=== PATIENT | female | born 1955 | race African-American/Black ===

== ENCOUNTER 2020-01-06 12:51 | Inpatient (IN) | payer MEDICARE, MEDICAID ==
--- NOTE | 2020-01-06 13:53 | ER Document Report ---
ED Medical Screen (RME) - General Chief Complaint: Abscess Stated Complaint: POSSIBLE ABSCESS Time Seen by Provider: 01/06/20 13:48 Mode of Arrival: Ambulatory Information source: Patient Notes: 64-year-old female ED for complaint of large abscess to the buttocks. She states it started a week ago Thursday. She states it started out very small but now it is very large. She states at home it started draining some and now it is draining more and it is very painful. She states it is very hard for her to walk or sit. 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 She states that she did not have surgery on this in the past. I have greeted and performed a rapid initial assessment of this patient. A comprehensive ED assessment and evaluation of the patient, analysis of test results and completion of medical decision making process will be conducted by an additional ED providers. - HPI Quality of pain: Sharp Severity: Severe Pain Level: 5 Associated Symptoms: Other - Large rectal/buttock fistula Exacerbated by: Sitting, Walking Relieved by: Denies Similar symptoms previously: Yes Recently seen / treated by doctor: No - Related Data Smoking: Cigarettes - half pack a day Frequency of alcohol use: None Drug Abuse: None Past Medical History - General Information source: Patient EENT Medical History: Reports: None Neurological Medical History: Reports: None Endocrine Medical History: Reports: None Renal/ Medical History: Reports: None Malignancy Medical History: Reports: None GI Medical History: Reports: None, Other - No fistula Musculoskeltal Medical History: Reports None Skin Medical History: Reports Hx Cellulitis, Reports Other - [place] spotted fever Psychiatric Medical History: Reports: None Traumatic Medical History: Reports: None Infectious Medical History: Reports: None - Immunizations Immunizations up to date: Yes Physical Exam - Vital signs Vitals: Temp Pulse Resp BP Pulse Ox 97.4 F 124 H 18 140/81 H 98 01/06/20 12:58 01/06/20 12:58 01/06/20 12:58 01/06/20 12:58 01/06/20 12:58 Course - Vital Signs Vital signs: Temp Pulse Resp BP Pulse Ox 97.4 F 124 H 18 140/81 H 98 01/06/20 12:58 01/06/20 12:58 01/06/20 12:58 01/06/20 12:58 01/06/20 12:58
[2020-01-06] MEDS ORDERED: NORMAL SALINE 1000 ML 1,000 ML IV ONE (14:46)
[2020-01-06] MEDS ORDERED: ONDANSETRON HCL INJ/PF 4 MG/2 ML SDV IV ONE (14:47)
--- NOTE | 2020-01-06 14:50 | ER Document Report ---
ED Skin Rash/Insect Bite/Abscs - General Chief Complaint: Abscess Stated Complaint: POSSIBLE ABSCESS Time Seen by Provider: 01/06/20 13:48 Mode of Arrival: Ambulatory Information source: Patient Notes: Patient presents complaining of tenderness and swelling to the right buttock for the past week. Patient states that last night she started to have drainage from an abscess to this area. Patient denies any fever. Patient reports nausea. Patient states she had a previous anal fistula but states that it did not require any surgery. Patient denies any significant medical history other does not see a doctor regularly. TRAVEL OUTSIDE OF THE [place] IN LAST 30 DAYS: No - HPI Patient complains to provider of: Tender/swollen area Onset: Last week Onset/Duration: Worse Quality of pain: Sharp Pain Level: 5 Skin Character: Abscess, Drainage, Tenderness, Warm Skin Temperature: Warm Quality of rash: Painful Exacerbated by: Movement Relieved by: Denies Similar symptoms previously: Yes Recently seen / treated by doctor: No - Related Data Allergies/Adverse Reactions: No Known Allergies Allergy (Unverified 01/06/20 14:32) Past Medical History - General Information source: Patient - Social History Smoking Status: Current Every Day Smoker Frequency of alcohol use: None Drug Abuse: None Occupation: None Family History: Reviewed & Not Pertinent EENT Medical History: Reports: None Neurological Medical History: Reports: None Endocrine Medical History: Reports: None Renal/ Medical History: Reports: None Malignancy Medical History: Reports: None GI Medical History: Reports: Other - Anal fistula Musculoskeletal Medical History: Reports None Skin Medical History: Reports Hx Cellulitis, Reports Other - [place] spotted fever Psychiatric Medical History: Reports: None Traumatic Medical History: Reports: None Infectious Medical History: Reports: None Surgical Hx: Negative - Immunizations Immunizations up to date: Yes Review of Systems - Review of Systems Constitutional: No symptoms reported. denies: Fever EENT: No symptoms reported Cardiovascular: No symptoms reported. denies: Chest pain Respiratory: No symptoms reported. denies: Cough Gastrointestinal: Nausea. denies: Vomiting Genitourinary: No symptoms reported Female Genitourinary: No symptoms reported Musculoskeletal: No symptoms reported Skin: Other - Abscess to right buttock Hematologic/Lymphatic: No symptoms reported Neurological/Psychological: No symptoms reported Physical Exam - Vital signs Vitals: Temp Pulse Resp BP Pulse Ox 97.4 F 124 H 18 140/81 H 98 01/06/20 12:58 01/06/20 12:58 01/06/20 12:58 01/06/20 12:58 01/06/20 12:58 - General General appearance: Alert, Anxious In distress: None - HEENT Head: Normocephalic, Atraumatic Eyes: Normal Conjunctiva: Normal Nasal: Normal Mouth/Lips: Normal Mucous membranes: Normal Neck: Normal, Supple - Respiratory Respiratory status: No respiratory distress Chest status: Nontender Breath sounds: Normal Chest palpation: Normal - Abdominal Inspection: Morbidly Obese Distension: No distension Tenderness: Nontender - Rectal Tenderness: Yes Hemorrhoids: None Notes: Carleen RN as standby - Back Back: Normal, Nontender - Extremities General upper extremity: Normal inspection, Normal strength General lower extremity: Normal inspection, Normal strength - Neurological Neuro grossly intact: Yes Cognition: Normal Samantha Coma Scale Eye Opening: Spontaneous Samantha Coma Scale Verbal: Oriented Samantha Coma Scale Motor: Obeys Commands Samantha Coma Scale Total: 15 - Psychological Associated symptoms: Anxious - Skin Skin Temperature: Warm Skin Moisture: Dry Skin irregularity: Abscess - Spontaneously draining abscess to left buttock Location of irregularity: Other Irregularity with: Swelling, Tenderness, Warmth, Inflammation Course - Re-evaluation Re-evalutation: 01/06/20 15:[address] Winn regarding patient presentation and exam findings. He advises starting with IV Zosyn and CT imaging of the area for further evaluation at this time. He advises IV contrast only at this time. 01/06/20 17:23 Patient reports pain is improved after medication. Radiologist called stating that patient had gas in the large abscess worry some for necrotizing infection. She is uncertain if there is any extensive rectal involvement patient was not able to receive IV contrast due to her renal function. 01/06/20 17:[address] Salazar who agrees to come and evaluate patient. 01/06/20 17:45 Dr. Salazar states that patient did not want to have surgery or be admitted. 01/06/20 17:54 After speaking with patient, patient states that due to the amount of pain she was having during examination she states that she was not listening to anything that the surgeon was saying. Patient states that she is agreeable with staying for admission and is agreeable to have a drainage procedure. 01/06/20 17:[address] Salazar who advises this provider is capable of draining patient's abscess and he advises after incision and drainage packing the wound. He states that patient told him to leave the room and that patient did not want him touching her, he states that he has signed off the case at this time. 01/06/20 18:15 Dr. Winn to bedside to discuss plan of care with patient. Patient is agreeable with this provider performing an incision and drainage procedure at this time as surgeon has signed off the case, patient states that she is a greeable with admission at this time. 01/06/20 19:10 Dr. Winn to bedside to assist with incision and drainage procedure. 01/06/20 19:23 Dr. Winn states that he spoke with surgeon Dr. Salazar who advises packing wound at this time and having hospitalist to admit patient. He advises that if she requires surgery it could be done tomorrow. 01/06/20 19:[address] Cabral who does agree to admit patient. - Vital Signs Vital signs: Temp Pulse Resp BP Pulse Ox 97.5 F 90 20 103/58 L 93 01/06/20 22:28 01/06/20 22:28 01/06/20 22:28 01/06/20 22:28 01/06/20 22:28 - Laboratory Result Diagrams: 01/06/20 14:20 01/06/20 14:20 Laboratory results interpreted by me: 01/06/20 01/06/20 01/06/20 14:20 14:20 14:20 WBC 17.4 H RBC 5.29 H MCH 26.7 L MCHC 31.9 L RDW 15.9 H Lymph % (Auto) 5.2 L Absolute Neuts (auto) 15.1 H Seg Neutrophils % 86.3 H Creatinine 1.39 H Est GFR ( Amer) 46 L Est GFR (MDRD) Non-Af 38 L Glucose 281 H POC Glucose Hemoglobin A1c % 8.3 H Alkaline Phosphatase 178 H Albumin 3.2 L 01/06/20 19:51 WBC RBC MCH MCHC RDW Lymph % (Auto) Absolute Neuts (auto) Seg Neutrophils % Creatinine Est GFR ( Amer) Est GFR (MDRD) Non-Af Glucose POC Glucose 243 H Hemoglobin A1c % Alkaline Phosphatase Albumin Labs- All tests 24 hr 01/06/20 01/06/20 01/06/20 14:20 14:20 14:20 WBC 17.4 H RBC 5.29 H Hgb 14.1 Hct 44.2 MCV 84 MCH 26.7 L MCHC 31.9 L RDW 15.9 H Plt Count 399 Lymph % (Auto) 5.2 L [place] % (Auto) 6.9 Eos % (Auto) 1.2 Baso % (Auto) 0.4 Absolute Neuts (auto) 15.1 H Absolute Lymphs (auto) 0.9 Absolute Monos (auto) 1.2 Absolute Eos (auto) 0.2 Absolute Basos (auto) 0.1 Seg Neutrophils % 86.3 H Sodium 140.9 Potassium 3.8 Chloride 102 Carbon Dioxide 28 Anion Gap 11 BUN 16 Creatinine 1.39 H Est GFR ( Amer) 46 L Est GFR (MDRD) Non-Af 38 L Glucose 281 H Hemoglobin A1c % 8.3 H Calcium 9.3 Total Bilirubin 1.0 Direct Bilirubin 0.3 Neonat Total Bilirubin Not Reportable Neonat Direct Bilirubin Not Reportable Neonat Indirect Bili Not Reportable AST 16 ALT 14 Alkaline Phosphatase 178 H Total Protein 6.8 Albumin 3.2 L - Diagnostic Test Radiology reviewed: Reports reviewed Procedures - Incision and Drainage Right Buttock Type: Simple Anesthetic type: 1% Lidocaine Blade size: 11 I&D procedure: Betadine prep applied Incision Method: Incision made by scalpel Notes: 01/06/20 19:24 Elliptical incision made to right buttock, large amount of bloody, foul-smelling drainage with some necrotic tissue drained. Wound was probed with rounded forceps. Half-inch packing gauze was placed in wound Discharge - Discharge Clinical Impression: Left buttock abscess Diabetes Qualifiers: Diabetes mellitus type: type 2 Diabetes mellitus skilled nursing insulin use: without termite exterminator use Diabetes mellitus complication status: with hyperglycemia Qualified Code(s): E11.65 - Type 2 diabetes mellitus with hyperglycemia Condition: Fair Disposition: ADMITTED INPATIENT Admitting Provider: Misha (Hospitalist) Unit Admitted: Medical Floor
[2020-01-06] MEDS ORDERED: MORPHINE SULFATE 10 MG/ML INJ IV ONE ×2 (14:55→18:28)
[2020-01-06 14:59] LABS: ABSOLUTE BASOPHILS # (AUTO) 0.1 10^3/uL (0.0-0.2); ABSOLUTE EOSINOPHILS # (AUTO) 0.2 10^3/uL (0.0-0.6); ABSOLUTE LYMPHOCYTES (AUTO) 0.9 10^3/uL (0.5-4.7); ABSOLUTE MONOCYTES (AUTO) 1.2 10^3/uL (0.1-1.4); ABSOLUTE NEUT (AUTO) 15.1 10^3/uL (1.7-8.2); BASOPHILS % (AUTO) 0.4 % (0-2); EOSINOPHILS % (AUTO) 1.2 % (0-6); HEMATOCRIT 44.2 % (36.0-47.0); HEMOGLOBIN 14.1 g/dL (12.0-15.5); LYMPHOCYTES % (AUTO) 5.2 % (13-45); MEAN CORPUSCULAR HEMOGLOBIN 26.7 pg (27.0-33.4); MEAN CORPUSCULAR HGB CONC 31.9 g/dL (32.0-36.0); MEAN CORPUSCULAR VOLUME 84 fl (80-97); MONOCYTES % (AUTO) 6.9 % (3-13); PLATELET COUNT 399 10^3/uL (150-450); RED BLOOD COUNT 5.29 10^6/uL (3.72-5.28); RED CELL DISTRIBUTION WIDTH 15.9 % (11.5-14.0); SEGMENTED NEUTROPHILS % (AUTO) 86.3 % (42-78); TOTAL CELLS COUNTED % (AUTO) 100 %; WHITE BLOOD COUNT 17.4 10^3/uL (4.0-10.5)
[2020-01-06 15:22] LABS: ALBUMIN 3.2 g/dL (3.5-5.0); ALKALINE PHOSPHATASE 178 U/L (38-126); ANION GAP 11 (5-19); ASPARTATE AMINO TRANSFERASE 16 U/L (14-36); BILIRUBIN,DIRECT 0.3 mg/dL (0.0-0.4); BLOOD UREA NITROGEN 16 mg/dL (7-20); CALCIUM 9.3 mg/dL (8.4-10.2); CARBON DIOXIDE 28 mmol/L (22-30); CHLORIDE 102 mmol/L (98-107); GLUCOSE 281 mg/dL (75-110); POTASSIUM 3.8 mmol/L (3.6-5.0); TOTAL PROTEIN 6.8 g/dL (6.3-8.2)
[2020-01-06] MEDS ORDERED: PIPERACILLIN/TAZOBACTAM 3.375 GM VIAL IV ONE (15:24)
--- NOTE | 2020-01-06 17:26 | RADIOLOGY REPORT (SQ) ---
EXAM DESCRIPTION: CT PELVIS WITH IMAGES COMPLETED DATE/TIME: 01/06/2020 3:49 pm REASON FOR STUDY: eval abscess to r buttock, hx fistula. COMPARISON: None. TECHNIQUE: CT scan of the pelvis performed without intravenous or oral contrast. Images reviewed wi th soft tissue and bone windows. Reconstructed coronal and sagittal MPR images reviewed. All images stored on PACS. All CT scanners at this facility use dose modulation, iterative reconstruction, and/or weight based d osing when appropriate to reduce radiation dose to as low as reasonably achievable (ALARA). [facility]: Dose Right [facility]: CareDose [facility]: Dose Right [facility]: Teradose 4D [facility]: [employer] RADIATION DOSE: CT Rad equipment meets quality standard of care and radiation dose reduction techniq ues were employed. CTDIvol: 14.4 mGy. DLP: 714 mGy-cm. mGy. LIMITATIONS: Lack of IV contrast limits evaluation of the soft tissues and bowel. FINDINGS: PELVIC BONES: No acute fracture. No worrisome bone lesions. No CT evidence of osteomyelit is. VISUALIZED SPINE: No acute findings. HIP(S): No acute fracture or dislocation. No worrisome bone lesions. SOFT TISSUES: There is a subcutaneous abscess containing foci of gas in the medial left gluteal subcu taneous fat measuring 9.2 x 4.6 cm. No significant fluid component. Skin thickening at the medial l eft gluteal cleft. Phlegmon/soft tissue attenuation extends to the left external anal canal, without definitive involvement of the internal anal canal, poorly evaluated without IV contrast and on CT. No foreign body. OTHER: No other significant finding. IMPRESSION: 1. Left gluteal subcutaneous abscess containing gas, suspicious for necrotizing infection. No involv ement of the perineum. There may be involvement of the left external anal sphincter. No definite in volvement of the internal anal sphincter or extension to the intraperitoneal space. COMMENT: Findings discussed with Angelique Hackett on 01/06/2020 at 1715 hours. Eastern time TECHNICAL DOCUMENTATION: JOB ID: [id number] Quality ID # [id number]: Final reports with documentation of one or more dose reduction techniques (e.g., Au tomated exposure control, adjustment of the mA and/or kV according to patient size, use of iterative reconstruction technique) 2010 [employer]- All Rights Reserved Reading location - IP/workstation name: [id number]
--- NOTE | 2020-01-06 17:53 | PDOC CONSULTATION ---
Consultation Consult Date: 01/06/20 Provider Consulted: SURGICAL SURGICALIST MD Consult reason:: Buttock abscess History of Present Illness History of Present Illness: ALEKSANDAR SCHMIDT is a 64 year old female seen in consultation at the request of the emergency room physician. This is a patient who "does not go to the doctor". She denies any medical problems, although has a blood sugar of greater than 280 today. She reports a 1 week history of swelling and pain of the left buttock. She presents to the emergency department for treatment. She has had similar symptoms like this in the past. Other doctors "give her antibiotics and pain medicine, and send her home". The patient denies chest pain, shortness of breath, nausea, vomiting, headache, dizziness, orthostasis, blurry vision. Past Medical History EENT Medical History: Reports: None Neurological Medical History: Reports: None Endocrine Medical History: Reports: None Renal/ Medical History: Reports: None Malignancy Medical History: Reports: None GI Medical History: Reports: None, Other - Anal fistula Musculoskeltal Medical History: Reports: None Skin Medical History: Reports: Other - [place] spotted fever Psychiatric Medical History: Reports: None Traumatic Medical History: Reports: None Infectious Medical History: Reports: None Social History Smoking Status: Current Every Day Smoker Electronic Cigarette use?: No Family History Family History: Reviewed & Not Pertinent Parental Family History Reviewed: Yes Children Family History Reviewed: Yes Sibling(s) Family History Reviewed.: Yes Medication/Allergy Allergies/Adverse Reactions: No Known Allergies Allergy (Unverified 01/06/20 14:32) Review of Systems Constitutional: ABSENT: anorexia, chills, fatigue Eyes: ABSENT: visual disturbances Ears: ABSENT: hearing changes Nose, Mouth, and Throat: ABSENT: sore throat Cardiovascular: ABSENT: chest pain Respiratory: ABSENT: cough Gastrointestinal: ABSENT: abdominal pain Genitourinary: ABSENT: dysuria Musculoskeletal: ABSENT: back pain Integumentary: PRESENT: other - Painful, swollen buttock lesion. ABSENT: rash Neurological: ABSENT: confusion, convulsions, dizziness Psychiatric: ABSENT: anxiety, depression Endocrine: ABSENT: cold intolerance, heat intolerance Hematologic/Lymphatic: ABSENT: easy bleeding, easy bruising Physical Exam Vital Signs: Temp Pulse Resp BP Pulse Ox 98.2 F 98 16 121/63 96 01/06/20 16:47 01/06/20 14:55 01/06/20 14:55 01/06/20 14:55 01/06/20 14:55 Intake & Output 01/05/20 01/06/20 01/07/20 06:59 06:59 06:59 Intake Total 100 Balance 100 Weight 52.3 kg General appearance: PRESENT: morbidly obese Head exam: PRESENT: atraumatic, normocephalic Eye exam: PRESENT: EOMI, PERRLA. ABSENT: scleral icterus Mouth exam: PRESENT: moist, neck supple Neck exam: ABSENT: meningismus, tenderness, thyromegaly, tracheal deviation Respiratory exam: PRESENT: unlabored. ABSENT: tachypnea, wheezes Cardiovascular exam: ABSENT: tachycardia Vascular exam: PRESENT: normal capillary refill GI/Abdominal exam: PRESENT: soft. ABSENT: tenderness Rectal exam: PRESENT: other - Multiple anal skin tags. No perirectal involvement. ABSENT: hemorrhoids Extremities exam: ABSENT: clubbing Musculoskeletal exam: ABSENT: deformity Neurological exam: PRESENT: alert, awake, oriented to person, oriented to place, oriented to time, oriented to situation Psychiatric exam: PRESENT: anxious. ABSENT: agitated Skin exam: PRESENT: other - 3 cm buttock abscess, actively draining purulent material. There is no perirectal extension. Results Laboratory Results: 01/06/20 14:20 01/06/20 14:20 01/06/20 01/06/20 14:20 14:20 WBC 17.4 H RBC 5.29 H Hgb 14.1 Hct 44.2 MCV 84 MCH 26.7 L MCHC 31.9 L RDW 15.9 H Plt Count 399 Seg Neutrophils % 86.3 H Sodium 140.9 Potassium 3.8 Chloride 102 Carbon Dioxide 28 Anion Gap 11 BUN 16 Creatinine 1.39 H Est GFR ( Amer) 46 L Glucose 281 H Calcium 9.3 Total Bilirubin 1.0 AST 16 Alkaline Phosphatase 178 H Total Protein 6.8 Albumin 3.2 L Impressions: Pelvis CT 01/06/20 15:24 IMPRESSION: 1. Left gluteal subcutaneous abscess containing gas, suspicious for necrotizing infection. No involvement of the perineum. There may be involvement of the left external anal sphincter. No definite involvement of the internal anal sphincter or extension to the intraperitoneal space. Assessment & Plan - Diagnosis (1) Left buttock abscess Is this a current diagnosis for this admission?: Yes - Plan Summary Plan Summary: This is a 64-year-old female with a left buttock abscess. I have recommended incision and drainage, however the patient has refused. She has requested "antibiotics, pain medicine, and discharged home". She reports that this has "worked before". I have discussed with her that there is a high likelihood of failure without adequate drainage of the abscess. She is still uninterested in bedside surgical intervention. I will sign off at this time. Disposition per ER physician. Also please note that the patient has a hemoglobin A1c of 8.3 , and a blood glucose of 281. The patient is in obvious diabetic, but has never been diagnosed or treated as such. It would be prudent, in the face of an infection, to treat her diabetes. I will leave this to the emergency room physician.
[2020-01-06] MEDS ORDERED: LIDOCAINE 1% INJ-PF (10 MG/ML) 30 ML SDV INJ ONE (17:58)
--- NOTE | 2020-01-06 19:56 | ER Document Report ---
Doctor's Note Notes: 01/06/20 19:52 This is a 64-year-old female I was asked see along with nurse practitioner. Patient is a poorly controlled diabetic who has a large left gluteal abscess. I examined the patient at the bedside and reviewed the documentation per nurse practitioner. linux consultant evaluated the patient but signed off the case as the patient refused I&D initially. Patient subsequently consented to an I&D in the emergency department by the nurse practitioner. I recommend admission to medicine at this time with IV antibiotics and control patient's blood glucose level. Follow-up surgical consultation will be obtained.
[2020-01-06] MEDS ORDERED: PROMETHAZINE HCL INJ 25 MG/1 ML VIAL IV PRN (20:11)
[2020-01-06] MEDS ORDERED: MAG HYDROX/AL HYDROX/SIMETH SUSP 30 ML UDCUP PO PRN (20:11)
[2020-01-06] MEDS ORDERED: MAGNESIUM HYDROXIDE SUSP 30 ML UDCUP PO PRN (20:11)
[2020-01-06] MEDS ORDERED: DEXTROSE 40% GEL 15 GM TUBE PO PRN ×2 (20:15)
[2020-01-06] MEDS ORDERED: LORAZEPAM INJ 2 MG/1 ML VIAL IV PRN (20:15)
[2020-01-06] MEDS ORDERED: NICOTINE 21 MG/24 HR PATCH.TD24 TD PRN (20:15)
[2020-01-06] MEDS ORDERED: GLUCAGON,HUMAN RECOMB 1 MG INJ IM PRN (20:15)
[2020-01-06] MEDS ORDERED: DEXTROSE 50%-WATER 25 GM/50 ML DISP.SYRIN IV PRN ×2 (20:15)
[2020-01-06] MEDS ORDERED: GUAIFENESIN SYRP 200 MG/10 ML UDC PO PRN (20:15)
[2020-01-06] MEDS: LINEZOLID 600 MG/300 ML RTUPB IV SCH (22:37)
[2020-01-06] MEDS: INSULIN REG, HUMAN 100 UNIT/ML 3 ML VIAL (PYX) SUBCUT PRN (23:33)
[2020-01-06] MEDS: HEPARIN SOD (PORCINE) 5,000 UNIT/ML 1 ML VIAL SUBCUT SCH (23:34)
[2020-01-07] MEDS ORDERED: PIPERACILLIN/TAZOBACTAM 3.375 GM VIAL IV SCH
[2020-01-07] MEDS: PIPERACILLIN SODIUM/TAZOBACTAM 2.25 GM in NORMAL SALINE 50 ML IV SCH ×5 (01:02→23:25)
[2020-01-07] MEDS: MORPHINE SULFATE 10 MG/ML INJ IV PRN ×4 (03:47→18:21)
--- NOTE | 2020-01-07 04:42 | PDOC H&P ---
History of Present Illness Admission Date/PCP: 01/06/2020 19:44 No local PCP Patient complains of: Left buttock pain History of Present Illness: ALEKSANDAR SCHMIDT is a 64 year old female who presents the emergency room with a 1 week history of left buttock pain. She admits gradually worsening pain accompanied by swelling in her left buttock over the course of the last week becoming severe today. Her buttock pain has also been accompanied by drainage of "pus" over the last 24 hours. Her buttock pain has been associated with developing nausea since the pain has been severe today. She denies other associated or accompanying signs and symptoms. The pain is sharp and stabbing without radiation, worsened by movement and sitting or otherwise putting pressure on the left buttock. She admits numerous prior similar episodes of skin and perianal abscesses which have been treated with oral antibiotics and have not required surgery. She has not identified any additional aggravating or ameliorating factors for her buttock pain. In the emergency room she was found to have a leukocytosis of 17,400 and a glucose of 281 with hemoglobin A1c of 8.3. Patient was not previously known to be diabetic. A CT scan of the area revealed an abscess with a small amount of gas formation consistent with local necrosis. She was seen by Dr. Salazar in consultation ordered by the emergency room provider. He recommended admission with surgical incision and drainage tomorrow. Patient was subsequently admitted to the hospital service for further evaluation and treatment with consultation to Dr. Salazar for further surgical care. Past Medical History Cardiac Medical History: Denies: Atrial Fibrillation, Coronary Artery Disease, DVT, Hyperlipidema, Hypertension, Pulmonary Embolism Pulmonary Medical History: Denies: Asthma, Chronic Obstructive Pulmonary Disease (COPD) EENT Medical History: Denies: Cataracts, Ears - Hearing aids Neurological Medical History: Denies: Hemorrhagic CVA, Ischemic CVA, Seizures Endocrine Medical History: Denies: Diabetes Mellitus Type 1, Hyperthyroidism, Hypothyroidism Renal/ Medical History: Denies: Chronic Kidney Disease, Nephrolithiasis Malignancy Medical History: Reports: None GI Medical History: Reports: Other - Anal fistula Denies: Cirrhosis, Crohn's Disease, Gastroesophageal Reflux Disease, Hepatitis, Peptic Ulcer Disease, Ulcerative Colitis Musculoskeltal Medical History: Denies: Arthritis, Fibromyalgia Skin Medical History: Denies: Eczema, Psoriasis Psychiatric Medical History: Reports: Tobacco Dependency Denies: Alcohol Dependency, Substance Abuse Traumatic Medical History: Reports: None Hematology: Denies: Anemia, Bleeding Tendencies Infectious Medical History: Reports: Other Infectious History Note: Mayfair spotted fever Past Surgical History Past Surgical History: Reports: None Social History Information Source: Patient Lives with: Alone Smoking Status: Current Every Day Smoker Electronic Cigarette use?: No Frequency of Alcohol Use: None Hx Recreational Drug Use: No Drugs: None Hx Prescription Drug Abuse: No - Advance Directive Resuscitation Status: Full Code Surrogate healthcare decision maker:: Leticia Patel Family History Family History: denies: CAD, DM, Hypertension, Malignancy Parental Family History Reviewed: Yes Children Family History Reviewed: No Sibling(s) Family History Reviewed.: Yes Medication/Allergy Home Medications: Ibuprofen [Motrin Ib] 200 mg PO DAILYP PRN 01/06/20 Allergies/Adverse Reactions: No Known Allergies Allergy (Unverified 01/06/20 14:32) Review of Systems Constitutional: ABSENT: chills, fever(s) Eyes: ABSENT: visual disturbances, other - Eye pain Ears: ABSENT: hearing changes, other - Ear pain Nose, Mouth, and Throat: ABSENT: headache(s), sore throat Cardiovascular: ABSENT: chest pain, palpitations Respiratory: ABSENT: cough, dyspnea Gastrointestinal: PRESENT: as per HPI, nausea. ABSENT: abdominal pain, constipation, diarrhea, vomiting Genitourinary: ABSENT: dysuria, hematuria Musculoskeletal: ABSENT: back pain, joint swelling Integumentary: PRESENT: as per HPI, other - Painful swelling of the left buttock with purulent drainage. ABSENT: pruritus, rash Neurological: ABSENT: confusion, convulsions, focal weakness, memory loss, syncope Psychiatric: ABSENT: anxiety, depression Endocrine: ABSENT: cold intolerance, heat intolerance Hematologic/Lymphatic: ABSENT: easy bleeding, easy bruising Allergic/Immunologic: ABSENT: seasonal rhinorrhea Physical Exam Vital Signs: Temp Pulse Resp BP Pulse Ox 98.2 F 98 16 121/63 96 01/06/20 16:47 01/06/20 14:55 01/06/20 14:55 01/06/20 14:55 01/06/20 14:55 Intake & Output 01/04/20 01/05/20 01/06/20 23:59 23:59 23:59 Intake Total 100 Balance 100 Weight 52.3 kg General appearance: PRESENT: cooperative, mild distress - Secondary to left buttock pain, morbidly obese Head exam: PRESENT: atraumatic, normocephalic Eye exam: PRESENT: conjunctiva pink. ABSENT: conjunctival injection, scleral icterus Ear exam: PRESENT: normal external ear exam. ABSENT: bleeding, drainage Mouth exam: PRESENT: dry mucosa, neck supple Neck exam: ABSENT: thyromegaly, tracheal deviation Respiratory exam: PRESENT: clear to auscultation patti, symmetrical, unlabored Cardiovascular exam: PRESENT: RRR. ABSENT: clicks, gallop, rubs Pulses: PRESENT: normal radial pulses, normal dorsalis pedis pul Vascular exam: PRESENT: normal capillary refill. ABSENT: pallor GI/Abdominal exam: PRESENT: normal bowel sounds, soft. ABSENT: tenderness Rectal exam: PRESENT: deferred Extremities exam: ABSENT: joint swelling, pedal edema Musculoskeletal exam: ABSENT: deformity, dislocation Neurological exam: PRESENT: alert, oriented to person, oriented to place, [place] to time, oriented to situation, CN II-XII grossly intact. ABSENT: motor sensory deficit Psychiatric exam: PRESENT: appropriate affect, normal mood Skin exam: PRESENT: dry, warm, other - Erythema and edema with local tenderness of the left buttock and a central area of induration that has been incised and drained with packing in place.. ABSENT: jaundice, rash, urticaria Results Laboratory Results: 01/06/20 14:20 01/06/20 14:20 01/06/20 01/06/20 14:20 14:20 WBC 17.4 H RBC 5.29 H Hgb 14.1 Hct 44.2 MCV 84 MCH 26.7 L MCHC 31.9 L RDW 15.9 H Plt Count 399 Seg Neutrophils % 86.3 H Sodium 140.9 Potassium 3.8 Chloride 102 Carbon Dioxide 28 Anion Gap 11 BUN 16 Creatinine 1.39 H Est GFR ( Amer) 46 L Glucose 281 H Calcium 9.3 Total Bilirubin 1.0 AST 16 Alkaline Phosphatase 178 H Total Protein 6.8 Albumin 3.2 L Impressions: Pelvis CT 01/06/20 15:24 IMPRESSION: 1. Left gluteal subcutaneous abscess containing gas, suspicious for necrotizing infection. No involvement of the perineum. There may be involvement of the left external anal sphincter. No definite involvement of the internal anal sphincter or extension to the intraperitoneal space. Assessment and Plan - Diagnosis (1) Left buttock abscess Is this a current diagnosis for this admission?: Yes (2) Left buttock pain Is this a current diagnosis for this admission?: Yes (3) Nausea Is this a current diagnosis for this admission?: Yes (4) Diabetes mellitus type 2 in obese Is this a current diagnosis for this admission?: Yes (5) Tobacco use disorder, continuous Is this a current diagnosis for this admission?: Yes (6) Morbid obesity Is this a current diagnosis for this admission?: Yes - Plan Summary Summary: Patient will be admitted to the medical floor she will receive routine supportive and symptomatic cares. She will be treated with IV Zosyn and IV Zyvox initially. Surgical consultation with Dr. Salazar has been obtained. She will receive morphine sulfate 2 to 4 mg IV every 2 hours as needed for pain. She will receive Ativan 1 mg IV every 4 hours as needed for anxiety or restlessness. Before meals and at bedtime Accu-Cheks will be performed with sliding scale insulin for hyperglycemia and a hypoglycemic protocol in place. Smoking cessation is advised and counseled briefly at the bedside. A nicotine replacement patch is available for the patient's use, if desired. Additional laboratory and/or radiographic evaluations will be obtained as needed. Patient will be on a diabetic diet. A registered dietitian consultation will be obtained for diabetic education. - Time Time Spent with patient: 15-24 minutes Smoking Cessation Education: 3 to 10 minutes Medications reviewed and adjusted accordingly: Yes Anticipated Discharge Disposition: Home with Home Health Anticipated Discharge Timeframe: within 72 hours - Inpatient Certification Based on my medical assessment, after consideration of the patient's comorbidities, presenting symptoms, or acuity I expect that the services needed warrant INPATIENT care.: Yes I certify that my determination is in accordance with my understanding of Medicare's requirements for reasonable and necessary INPATIENT services [42 CFR 412.3e].: Yes Medical Necessity: Need Close Monitoring Due to Risk of Patient Decompensation, Need for Pain Control, Need for IV Antibiotics, Need for Surgery, Risk of Complication if Not Cared For in Hospital
[2020-01-07] MEDS: HEPARIN SOD (PORCINE) 5,000 UNIT/ML 1 ML VIAL SUBCUT SCH ×3 (05:04→21:03)
[2020-01-07] MEDS: PANTOPRAZOLE SODIUM 40 MG TABLET.DR PO SCH (05:04)
[2020-01-07 06:21] LABS: HEMATOCRIT 42.1 % (36.0-47.0); HEMOGLOBIN 13.3 g/dL (12.0-15.5); MEAN CORPUSCULAR HEMOGLOBIN 26.6 pg (27.0-33.4); MEAN CORPUSCULAR HGB CONC 31.5 g/dL (32.0-36.0); MEAN CORPUSCULAR VOLUME 85 fl (80-97); PLATELET COUNT 404 10^3/uL (150-450); RED BLOOD COUNT 4.98 10^6/uL (3.72-5.28); RED CELL DISTRIBUTION WIDTH 15.7 % (11.5-14.0); WHITE BLOOD COUNT 20.7 10^3/uL (4.0-10.5)
[2020-01-07 06:24] LABS: INTERNATIONAL RATION (INR) 1.07; PARTIAL THROMBOPLASTIN TIME 31.5 SEC (23.5-35.8); PROTHROMBIN TIME 14.1 SEC (11.4-15.4)
[2020-01-07 06:50] LABS: ANION GAP 12 (5-19); BLOOD UREA NITROGEN 21 mg/dL (7-20); CALCIUM 8.9 mg/dL (8.4-10.2); CARBON DIOXIDE 27 mmol/L (22-30); CHLORIDE 101 mmol/L (98-107); CHOLESTEROL 144.72 mg/dL (0-200); GLUCOSE 190 mg/dL (75-110); TRIGLYCERIDES 239 mg/dL (<150)
[2020-01-07 07:01] LABS: DIRECT LDL 63 mg/dL (<100)
[2020-01-07 07:03] LABS: VLDL CHOLESTEROL 47.8 mg/dL (10-31)
[2020-01-07] MEDS: INSULIN REG, HUMAN 100 UNIT/ML 3 ML VIAL (PYX) SUBCUT PRN ×4 (08:03→21:50)
[2020-01-07] MEDS: DOCUSATE SODIUM 100 MG CAPSULE PO SCH ×2 (09:02→17:11)
[2020-01-07] MEDS: LINEZOLID 600 MG/300 ML RTUPB IV SCH ×2 (09:04→21:02)
--- NOTE | 2020-01-07 10:31 | PDOC PROGRESS REPORT ---
Subjective Progress Note for:: 01/07/20 Subjective:: Patient admitted with left buttock pain. She was found to have an abscess and general surgical consultation notes that patient declined surgical intervention and so Dr. Salazar signed off as per his notes on January 05. She is currently on Zosyn and Zyvox. Patient does state that her pain is controlled at the time of my exam. White count is noted to be at 20.7 with azotemia and a creatinine of 1.6 and BUN of 21. Patient did have an I&D done in the emergency room and wound culture is currently yielding gram-negative rods Reason For Visit: ABSCESS LEFT BUTTOCK,NEWLY DIAGNOSED DIABETES Physical Exam Vital Signs: Temp Pulse Resp BP Pulse Ox 98.0 F 101 H 18 121/69 93 01/07/20 08:42 01/07/20 07:20 01/07/20 07:20 01/07/20 07:20 01/07/20 07:20 Intake & Output 01/06/20 01/07/20 01/08/20 06:59 06:59 05:59 Intake Total 2700 Output Total 300 Balance 2400 Weight 165.5 kg General appearance: PRESENT: no acute distress, morbidly obese, well-developed, well-nourished Head exam: PRESENT: atraumatic, normocephalic Eye exam: PRESENT: conjunctiva pink, EOMI, PERRLA. ABSENT: scleral icterus Mouth exam: PRESENT: tongue midline Neck exam: ABSENT: carotid bruit, JVD, lymphadenopathy, thyromegaly Respiratory exam: PRESENT: clear to auscultation patti. ABSENT: rales, rhonchi, wheezes Cardiovascular exam: PRESENT: RRR, +S1, +S2. ABSENT: diastolic murmur, rubs, systolic murmur Pulses: PRESENT: normal dorsalis pedis pul Vascular exam: PRESENT: normal capillary refill GI/Abdominal exam: PRESENT: normal bowel sounds, soft. ABSENT: distended, guarding, mass, organolmegaly, rebound, tenderness Rectal exam: PRESENT: deferred Extremities exam: PRESENT: full ROM. ABSENT: calf tenderness, clubbing, pedal edema Neurological exam: PRESENT: alert, awake, oriented to person, oriented to place, oriented to time, oriented to situation, CN II-XII grossly intact. ABSENT: motor sensory deficit Psychiatric exam: PRESENT: appropriate affect, normal mood. ABSENT: homicidal ideation, suicidal ideation Skin exam: PRESENT: dry, intact, warm, other - Dressing in L gluteal area with drainage. ABSENT: cyanosis, rash Results Laboratory Results: 01/07/20 05:18 01/07/20 05:18 01/06/20 01/06/20 01/07/20 14:20 14:20 05:18 WBC 17.4 H 20.7 H RBC 5.29 H 4.98 Hgb 14.1 13.3 Hct 44.2 42.1 MCV 84 85 MCH 26.7 L 26.6 L MCHC 31.9 L 31.5 L RDW 15.9 H 15.7 H Plt Count 399 404 Seg Neutrophils % 86.3 H Sodium 140.9 Potassium 3.8 Chloride 102 Carbon Dioxide 28 Anion Gap 11 BUN 16 Creatinine 1.39 H Est GFR ( Amer) 46 L Glucose 281 H Calcium 9.3 Magnesium Total Bilirubin 1.0 AST 16 Alkaline Phosphatase 178 H Total Protein 6.8 Albumin 3.2 L Triglycerides Cholesterol LDL Cholesterol Direct VLDL Cholesterol HDL Cholesterol TSH 01/07/20 01/07/20 05:18 05:18 WBC RBC Hgb Hct MCV MCH MCHC RDW Plt Count Seg Neutrophils % Sodium 140.2 Potassium 4.0 Chloride 101 Carbon Dioxide 27 Anion Gap 12 BUN 21 H Creatinine 1.66 H Est GFR ( Amer) 38 L Glucose 190 H Calcium 8.9 Magnesium 2.1 Total Bilirubin AST Alkaline Phosphatase Total Protein Albumin Triglycerides 239 H Cholesterol 144.72 LDL Cholesterol Direct 63 VLDL Cholesterol 47.8 H HDL Cholesterol 20 L TSH 3.60 Impressions: Pelvis CT 01/06/20 15:24 IMPRESSION: 1. Left gluteal subcutaneous abscess containing gas, suspicious for necrotizing infection. No involvement of the perineum. There may be involvement of the left external anal sphincter. No definite involvement of the internal anal sphincter or extension to the intraperitoneal space. Assessment and Plan - Diagnosis (1) Morbid obesity with BMI of 70 and over, adult Is this a current diagnosis for this admission?: Yes (2) Diabetes mellitus type 2 in obese Is this a current diagnosis for this admission?: Yes (3) Left buttock abscess Is this a current diagnosis for this admission?: Yes (4) Tobacco use disorder, continuous Is this a current diagnosis for this admission?: Yes (5) Sepsis Qualifiers: Severe sepsis shock status: without septic shock Is this a current diagnosis for this admission?: Yes Plan: Continue current management - Plan Summary Summary: Patient was septic on initial presentation, with tachycardia, leukocytosis as well as a source infection of abscess on initial presentation Although cultures currently yielding gram-negative rods I will leave patient on Zosyn as well as Zyvox for now pending further culture results. If no evidence of MRSA Zyvox can be discontinued. It appears patient is also a newly diagnosed diabetic with hemoglobin A1c of 8.3. She is currently on sliding scale insulin. She will need diabetic education and further management including weight loss as she is morbidly obese - Time Time Spent with patient: 15-24 minutes Medications reviewed and adjusted accordingly: Yes Anticipated Discharge Disposition: Home, Self Care Anticipated Discharge Timeframe: within 72 hours
[2020-01-07 11:56] LABS: ANION GAP 11 (5-19); BLOOD UREA NITROGEN 23 mg/dL (7-20); CALCIUM 8.8 mg/dL (8.4-10.2); CARBON DIOXIDE 25 mmol/L (22-30); CHLORIDE 101 mmol/L (98-107); GLUCOSE 257 mg/dL (75-110); POTASSIUM 4.1 mmol/L (3.6-5.0)
--- NOTE | 2020-01-07 16:14 | Progress Note ---
Provider Note Provider Note: Blood culture did return coagulase negative staph, not MRSA while wound culture is returning gram-negative rods. At this time it appears the staph is a contaminant. I will order repeat blood cultures in a.m. and further adjustment of his antibiotics subsequent to results when available
[2020-01-08] MEDS: MORPHINE SULFATE 10 MG/ML INJ IV PRN ×3 (00:02→11:40)
[2020-01-08] MEDS: PIPERACILLIN SODIUM/TAZOBACTAM 2.25 GM in NORMAL SALINE 50 ML IV SCH ×3 (05:24→17:01)
[2020-01-08] MEDS: PANTOPRAZOLE SODIUM 40 MG TABLET.DR PO SCH (05:25)
[2020-01-08] MEDS: HEPARIN SOD (PORCINE) 5,000 UNIT/ML 1 ML VIAL SUBCUT SCH ×3 (05:25→21:18)
[2020-01-08 08:02] LABS: HEMATOCRIT 39.6 % (36.0-47.0); HEMOGLOBIN 12.5 g/dL (12.0-15.5); MEAN CORPUSCULAR HEMOGLOBIN 26.9 pg (27.0-33.4); MEAN CORPUSCULAR HGB CONC 31.6 g/dL (32.0-36.0); MEAN CORPUSCULAR VOLUME 85 fl (80-97); PLATELET COUNT 390 10^3/uL (150-450); RED BLOOD COUNT 4.66 10^6/uL (3.72-5.28); RED CELL DISTRIBUTION WIDTH 15.6 % (11.5-14.0); WHITE BLOOD COUNT 10.5 10^3/uL (4.0-10.5)
--- NOTE | 2020-01-08 08:19 | PDOC PROGRESS REPORT ---
Subjective Progress Note for:: 01/08/20 Subjective:: feels ok Reason For Visit: ABSCESS LEFT BUTTOCK,NEWLY DIAGNOSED DIABETES Physical Exam Vital Signs: Temp Pulse Resp BP Pulse Ox 98.0 F 89 20 127/85 H 91 L 01/08/20 08:00 01/08/20 07:57 01/08/20 07:57 01/08/20 07:57 01/08/20 07:57 Intake & Output 01/07/20 01/08/20 01/09/20 07:59 06:59 06:59 Intake Total Output Total Balance Weight General appearance: PRESENT: no acute distress, morbidly obese Head exam: PRESENT: normocephalic Eye exam: PRESENT: EOMI Ear exam: PRESENT: normal external ear exam Mouth exam: PRESENT: moist Neck exam: PRESENT: full ROM Respiratory exam: PRESENT: clear to auscultation patti Cardiovascular exam: PRESENT: RRR Pulses: PRESENT: normal radial pulses, normal femoral pulses Vascular exam: PRESENT: normal capillary refill Breast: PRESENT: Normal GI/Abdominal exam: PRESENT: soft Rectal exam: PRESENT: other - left buttock abscess still with 4-6cm of induration, however wound less necrotic with some pink granulation tissue Extremities exam: PRESENT: full ROM Musculoskeletal exam: PRESENT: full ROM Neurological exam: PRESENT: alert, awake, oriented to place Psychiatric exam: PRESENT: appropriate affect Skin exam: PRESENT: dry Results Laboratory Results: 01/08/20 07:45 01/07/20 11:15 01/07/20 01/08/20 11:15 07:45 WBC 10.5 RBC 4.66 Hgb 12.5 Hct 39.6 MCV 85 MCH 26.9 L MCHC 31.6 L RDW 15.6 H Plt Count 390 Sodium 136.7 L Potassium 4.1 Chloride 101 Carbon Dioxide 25 Anion Gap 11 BUN 23 H Creatinine 1.65 H Est GFR ( Amer) 38 L Glucose 257 H Calcium 8.8 01/06/20 17:31 Blood Blood Culture (PCR) - Final Staphylococcus Species Impressions: Pelvis CT 01/06/20 15:24 IMPRESSION: 1. Left gluteal subcutaneous abscess containing gas, suspicious for necrotizing infection. No involvement of the perineum. There may be involvement of the left external anal sphincter. No definite involvement of the internal anal sphincter or extension to the intraperitoneal space. Assessment & Plan - Time Anticipated Discharge Disposition: Home, Self Care Anticipated Discharge Timeframe: unk - Plan Summary Plan Summary: morbidly obese female with left buttock abscess drained in er now with surrounding induration, but no obvious necrosis wound cont dressing change.
[2020-01-08] MEDS: ACETAMINOPHEN 325 MG TABLET PO PRN ×2 (08:37→16:53)
[2020-01-08] MEDS: INSULIN REG, HUMAN 100 UNIT/ML 3 ML VIAL (PYX) SUBCUT PRN (08:38)
[2020-01-08] MEDS: DOCUSATE SODIUM 100 MG CAPSULE PO SCH ×2 (10:26→17:02)
[2020-01-08] MEDS: LINEZOLID 600 MG/300 ML RTUPB IV SCH (10:27)
[2020-01-08] MEDS: INSULIN REG, HUMAN 100 UNIT/ML 3 ML VIAL (PYX) SUBCUT SCH ×3 (11:38→21:16)
[2020-01-08 17:32] LABS: APPEARANCE,URINE SLIGHTLY-CLOUDY; BILIRUBIN,URINE NEGATIVE (NEGATIVE); COLOR,URINE YELLOW; GLUCOSE, URINE NEGATIVE (NEGATIVE); KETONES,URINE NEGATIVE (NEGATIVE); LEUKOCYTE ESTERASE,URINE SMALL (NEGATIVE); NITRITE,URINE NEGATIVE (NEGATIVE); PROTEIN,URINE 30 mg/dL (NEGATIVE); URINE SPECIFIC GRAVITY 1.023
--- NOTE | 2020-01-08 18:47 | PDOC PROGRESS REPORT ---
Subjective Subjective:: Per Previous Physician: "ALEKSANDAR SCHMIDT is a 64 year old female who presents the emergency room with a 1 week history of left buttock pain. She admits gradually worsening pain accompanied by swelling in her left buttock over the course of the last week becoming severe today. Her buttock pain has also been accompanied by drainage of "pus" over the last 24 hours. Her buttock pain has been associated with developing nausea since the pain has been severe today. She denies other associated or accompanying signs and symptoms. The pain is sharp and stabbing without radiation, worsened by movement and sitting or otherwise putting pressure on the left buttock. She admits numerous prior similar episodes of skin and perianal abscesses which have been treated with oral antibiotics and have not required surgery. She has not identified any additional aggravating or ameliorating factors for her buttock pain. In the emergency room she was found to have a leukocytosis of 17,400 and a glucose of 281 with hemoglobin A1c of 8.3. Patient was not previously known to be diabetic. A CT scan of the area revealed an abscess with a small amount of gas formation consistent with local necrosis. She was seen by Dr. Salazar in consultation ordered by the emergency room provider. He recommended admission with surgical incision and drainage tomorrow. Patient was subsequently admitted to the hospital service for further evaluation and treatment with consultation to Dr. Salazar for further surgical care." 01/08/2020 Patient states she is overall feeling better today and believes that her buttock wound is improving. I discussed the case with Dr. Johnson and general surgery today. He has a great deal of concern regarding the patient's ability to heal this wound due to her severe morbid obesity and her overall immobility which puts her at higher risk for poor healing and recurrence. Wound is currently draining purulent fluid and per Dr. Johnson patient can continue having packing and topical treatments without any further need for surgery at this time. Patient is continued on antibiotics. Blood culture was initially contaminated and repeat blood culture is pending. Wound culture grew E. coli and Proteus mirabilis. Plan for patient to be discharged to nursing facility for wound care as she almost certainly is physically unable to reach this wound and care for herself. Even with home health, I will be hesitant to let her go more than a day without appropriate wound care. Reason For Visit: ABSCESS LEFT BUTTOCK,NEWLY DIAGNOSED DIABETES Physical Exam Vital Signs: Temp Pulse Resp BP Pulse Ox 97.8 F 76 18 106/80 95 01/08/20 15:48 01/08/20 15:48 01/08/20 15:48 01/08/20 15:48 01/08/20 15:48 Intake & Output 01/07/20 01/08/20 01/09/20 07:59 06:59 06:59 Intake Total 710 Output Total 600 Balance 110 Weight Exam: General appearance: PRESENT: no acute distress, well-developed, well-nourished, super morbidly obese with BMI of 73.7, states her infection seems to be getting better Head exam: PRESENT: atraumatic, normocephalic Eye exam: PRESENT: conjunctiva pink. ABSENT: scleral icterus Mouth exam: PRESENT: moist Respiratory exam: PRESENT: clear to auscultation patti. ABSENT: rales, rhonchi, wheezes Cardiovascular exam: PRESENT: RRR. ABSENT: diastolic murmur, rubs, systolic murmur GI/Abdominal exam: PRESENT: normal bowel sounds, soft. ABSENT: distended, guarding, mass, organolmegaly, rebound, tenderness Neurological exam: PRESENT: alert, awake, oriented to person, oriented to place, oriented to time, oriented to situation Psychiatric exam: PRESENT: appropriate affect, normal mood Skin exam: PRESENT: dry, warm; left buttock wound with packing in place and surrounding induration seems to be healing gradually Results Laboratory Results: 01/08/20 07:45 01/07/20 11:15 01/08/20 01/08/20 07:45 17:08 WBC 10.5 RBC 4.66 Hgb 12.5 Hct 39.6 MCV 85 MCH 26.9 L MCHC 31.6 L RDW 15.6 H Plt Count 390 Urine Color YELLOW Urine Appearance SLIGHTLY-CLOUDY Urine pH 5.0 Ur Specific [place] 1.023 Urine Protein 30 H Urine Glucose (UA) NEGATIVE Urine Ketones NEGATIVE Urine Blood NEGATIVE Urine Nitrite NEGATIVE Ur Leukocyte Esterase SMALL H Urine WBC (Auto) 5 Urine RBC (Auto) 2 01/06/20 17:31 Blood Blood Culture (PCR) - Final Staphylococcus Species Impressions: Pelvis CT 01/06/20 15:24 IMPRESSION: 1. Left gluteal subcutaneous abscess containing gas, suspicious for necrotizing infection. No involvement of the perineum. There may be involvement of the left external anal sphincter. No definite involvement of the internal anal sphincter or extension to the intraperitoneal space. Assessment and Plan - Diagnosis (1) Diabetes mellitus type 2 in obese Is this a current diagnosis for this admission?: Yes (2) Left buttock abscess Is this a current diagnosis for this admission?: Yes (3) Left buttock pain Is this a current diagnosis for this admission?: Yes (4) Morbid obesity with BMI of 70 and over, adult Is this a current diagnosis for this admission?: Yes (5) Tobacco use disorder, continuous Is this a current diagnosis for this admission?: Yes - Plan Summary Summary: Per Previous Physician: "Patient was septic on initial presentation, with tachycardia, leukocytosis as well as a source infection of abscess on initial presentation Although cultures currently yielding gram-negative rods I will leave patient on Zosyn as well as Zyvox for now pending further culture results. If no evidence of MRSA Zyvox can be discontinued. (1) Morbid obesity with BMI of 70 and over, adult Is this a current diagnosis for this admission?: Yes Counseled on weight loss (2) Diabetes mellitus type 2 in obese Is this a current diagnosis for this admission?: Yes sliding scale insulin and Accu-Cheks (3) Left buttock abscess Is this a current diagnosis for this admission?: Yes Initially given Zyvox and Zosyn, cultures growing sensitive E. coli and Proteus; antibiotics changed to ceftriaxone, can be changed to oral cefazolin at discharge to complete total 10-day course Wound culture growing E. coli and Proteus mirabilis Initial blood culture contaminated with MSSA, repeat blood culture pending General surgery consulted I&D done in ED, no further surgery needed per general surgery Needs home health wound care versus nursing facility wound care at discharge (4) Tobacco use disorder, continuous Is this a current diagnosis for this admission?: Yes Must stop smoking for wounds to heal (5) Sepsis Resolved - Time Time Spent with patient: 25-34 minutes Medications reviewed and adjusted accordingly: Yes Anticipated Discharge Disposition: [facility]irement Facility Anticipated Discharge Timeframe: within 48 hours - Inpatient Certification Based on my medical assessment, after consideration of the patient's comorbidities, presenting symptoms, or acuity I expect that the services needed warrant INPATIENT care.: Yes I certify that my determination is in accordance with my understanding of Medicare's requirements for reasonable and necessary INPATIENT services [42 CFR 412.3e].: Yes Medical Necessity: Significant Comorbidiites Make Outpatient Treatment Too Risky, Need Close Monitoring Due to Risk of Patient Decompensation, Need for IV Antibiotics, Risk of Complication if Not Cared For in Hospital, Risk of Diagnosis Which Will Require Inpatient Eval/Care/Monitoring
[2020-01-08] MEDS: MELATONIN 5 MG TABLET PO PRN (21:18)
[2020-01-08] MEDS ORDERED: LINEZOLID 600 MG TABLET PO SCH (22:00)
[2020-01-09] MEDS: PANTOPRAZOLE SODIUM 40 MG TABLET.DR PO SCH (05:33)
[2020-01-09] MEDS: MORPHINE SULFATE 10 MG/ML INJ IV PRN ×2 (05:33→13:27)
[2020-01-09] MEDS: HEPARIN SOD (PORCINE) 5,000 UNIT/ML 1 ML VIAL SUBCUT SCH ×3 (05:34→21:48)
[2020-01-09 06:23] LABS: HEMATOCRIT 38.2 % (36.0-47.0); HEMOGLOBIN 12.3 g/dL (12.0-15.5); MEAN CORPUSCULAR HEMOGLOBIN 27.1 pg (27.0-33.4); MEAN CORPUSCULAR HGB CONC 32.2 g/dL (32.0-36.0); MEAN CORPUSCULAR VOLUME 84 fl (80-97); PLATELET COUNT 378 10^3/uL (150-450); RED BLOOD COUNT 4.55 10^6/uL (3.72-5.28); RED CELL DISTRIBUTION WIDTH 15.8 % (11.5-14.0); WHITE BLOOD COUNT 7.2 10^3/uL (4.0-10.5)
--- NOTE | 2020-01-09 06:41 | CDI QUERY ---
CDI Query CDI Review: Dear Provider, Please clarify and document in progress notes and D/C summary if you agree with the following: GAS GANGRENE due to diabetes, resolving? GAS GANGRENE, resolving? ABSCESS only OTHER? Clinical data: Gas with local necrosis poorly controlled diabetes abscess Thanks, Supriya Abdullahi, CDI [phone]
--- NOTE | 2020-01-09 07:25 | Progress Note ---
Provider Note Provider Note: left buttock abscess with gas gangrene
[2020-01-09] MEDS: INSULIN REG, HUMAN 100 UNIT/ML 3 ML VIAL (PYX) SUBCUT SCH ×4 (08:08→21:48)
[2020-01-09] MEDS: CEFTRIAXONE 2 GM/D5W RTU 2 GM/50 ML RTUPB IV SCH (09:41)
[2020-01-09] MEDS: DOCUSATE SODIUM 100 MG CAPSULE PO SCH ×2 (09:42→17:00)
--- NOTE | 2020-01-09 13:58 | Progress Note ---
Provider Note Provider Note: ID Consult- I was asked to review the patient's chart and comment on the positive blood culture. The patient had one set of blood cultures that grew Staph hominis. This is a skin contaminant, and there is no indication for antibiotics for this organism. Patient was admitted with an abscess of the buttocks. The patient apparently had an I&D of the abscess in the ED. Cultures grew a mixture of aerobic and anaerobic meseret, including Proteus and E coli. She is being treated with cef triaxone 2 gm IV daily. Patient is currently afebrile, and the WBC has come down to normal. Recommend adding metronidazole 500 mg po BID to give better anaerobic coverage. When patient is ready for discharge, would send home with oral ciprofloxacin 500 mg BID and metronidazole 500 mg BID to treat for a total of 7-10 days (counting hospital antibiotic days). Patient is morbidly obese, so other options, including Septra will not be practical because of her morbid obesity. Please contact me if there any questions. Bradley Maya MD Pager: [phone]
--- NOTE | 2020-01-09 15:08 | PDOC PROGRESS REPORT ---
Subjective Progress Note for:: 01/09/20 Subjective:: 64-year-old female status post incision and drainage of a buttock abscess by the emergency room physician. The the patient reports less pain today. She denies fevers, chills, nausea, vomiting, abdominal pain, chest pain, shortness of breath, dizziness, orthostasis. Reason For Visit: ABSCESS LEFT BUTTOCK,NEWLY DIAGNOSED DIABETES Physical Exam Vital Signs: Temp Pulse Resp BP Pulse Ox 98.2 F 76 17 140/76 H 96 01/09/20 12:00 01/09/20 12:00 01/09/20 00:50 01/09/20 12:00 01/09/20 00:50 Intake & Output 01/08/20 01/09/20 01/10/20 06:59 06:59 06:59 Intake Total 760 Output Total 1300 Balance -540 Weight 165.5 kg General appearance: PRESENT: morbidly obese Head exam: PRESENT: atraumatic, normocephalic Eye exam: PRESENT: EOMI, PERRLA. ABSENT: scleral icterus Mouth exam: PRESENT: moist, neck supple Neck exam: ABSENT: meningismus, tenderness, thyromegaly, tracheal deviation Respiratory exam: PRESENT: unlabored. ABSENT: tachypnea, wheezes Cardiovascular exam: ABSENT: tachycardia GI/Abdominal exam: PRESENT: soft. ABSENT: rigid, tenderness Rectal exam: PRESENT: other - Buttock abscess without signs of purulence, necrosis, or other uncontrolled infection. Extremities exam: ABSENT: clubbing Musculoskeletal exam: ABSENT: deformity Neurological exam: PRESENT: alert, awake, oriented to person, oriented to place, oriented to time, oriented to situation Psychiatric exam: ABSENT: agitated, anxious Focused psych exam: ABSENT: catatonic, delusional Skin exam: ABSENT: cyanosis, jaundice Results Laboratory Results: 01/09/20 05:45 01/07/20 11:15 01/08/20 01/09/20 17:08 05:45 WBC 7.2 RBC 4.55 Hgb 12.3 Hct 38.2 MCV 84 MCH 27.1 MCHC 32.2 RDW 15.8 H Plt Count 378 Urine Color YELLOW Urine Appearance SLIGHTLY-CLOUDY Urine pH 5.0 Ur Specific [place] 1.023 Urine Protein 30 H Urine Glucose (UA) NEGATIVE Urine Ketones NEGATIVE Urine Blood NEGATIVE Urine Nitrite NEGATIVE Ur Leukocyte Esterase SMALL H Urine WBC (Auto) 5 Urine RBC (Auto) 2 01/06/20 17:31 Blood Blood Culture (PCR) - Final Staphylococcus Species Impressions: Pelvis CT 01/06/20 15:24 IMPRESSION: 1. Left gluteal subcutaneous abscess containing gas, suspicious for necrotizing infection. No involvement of the perineum. There may be involvement of the left external anal sphincter. No definite involvement of the internal anal sphincter or extension to the intraperitoneal space. Assessment & Plan - Diagnosis (1) Left buttock abscess Is this a current diagnosis for this admission?: Yes - Time Anticipated Discharge Disposition: unknown Anticipated Discharge Timeframe: unknown - Plan Summary Plan Summary: 64-year-old female with a buttock abscess that was I&D to the ER, by the emergency room physician. The patient's wound is healing very well. Continue with damp to dry dressing changes with packing twice daily. The patient "cannot change the dressing by herself". She is hesitant to go home. May need SNF placement. Okay for discharge from a surgical standpoint. Continue with damp to dry dressing changes twice daily. Oral antibiotics for 7 days total. Tight glucose control. Surgery will sign off at this time. Please renotify with any questions or concerns.
--- NOTE | 2020-01-09 18:01 | PDOC PROGRESS REPORT ---
Subjective Subjective:: Per Previous Physician: "ALEKSANDAR SCHMIDT is a 64 year old female who presents the emergency room with a 1 week history of left buttock pain. She admits gradually worsening pain accompanied by swelling in her left buttock over the course of the last week becoming severe today. Her buttock pain has also been accompanied by drainage of "pus" over the last 24 hours. Her buttock pain has been associated with developing nausea since the pain has been severe today. She denies other associated or accompanying signs and symptoms. The pain is sharp and stabbing without radiation, worsened by movement and sitting or otherwise putting pressure on the left buttock. She admits numerous prior similar episodes of skin and perianal abscesses which have been treated with oral antibiotics and have not required surgery. She has not identified any additional aggravating or ameliorating factors for her buttock pain. In the emergency room she was found to have a leukocytosis of 17,400 and a glucose of 281 with hemoglobin A1c of 8.3. Patient was not previously known to be diabetic. A CT scan of the area revealed an abscess with a small amount of gas formation consistent with local necrosis. She was seen by Dr. Salazar in consultation ordered by the emergency room provider. He recommended admission with surgical incision and drainage tomorrow. Patient was subsequently admitted to the hospital service for further evaluation and treatment with consultation to Dr. Salazar for further surgical care." 01/08/2020 Patient states she is overall feeling better today and believes that her buttock wound is improving. I discussed the case with Dr. Johnson and general surgery today. He has a great deal of concern regarding the patient's ability to heal this wound due to her severe morbid obesity and her overall immobility which puts her at higher risk for poor healing and recurrence. Wound is currently draining purulent fluid and per Dr. Johnson patient can continue having packing and topical treatments without any further need for surgery at this time. Patient is continued on antibiotics. Blood culture was initially contaminated and repeat blood culture is pending. Wound culture grew E. coli and Proteus mirabilis. Plan for patient to be discharged to nursing facility for wound care as she almost certainly is physically unable to reach this wound and care for herself. Even with home health, I will be hesitant to let her go more than a day without appropriate wound care. 01/09/2020 Patient's blood cultures 2/2 are now growing staph hominis which would normally be considered a contaminant but I was told by microbiology lab but this was growing in both bottles. I can see now that it was actually only growing in 1/2 bottles despite what I was told. Patient is already on adequate antibiotic therapy for gram-positive bacteria. I had already consulted infectious disease. Repeat blood cultures today. Patient feels overall quite well and states that her buttock infection is improving steadily. No acute events overnight. Reason For Visit: ABSCESS LEFT BUTTOCK,NEWLY DIAGNOSED DIABETES Physical Exam Vital Signs: Temp Pulse Resp BP Pulse Ox 97.3 F 73 11 L 155/87 H 96 01/09/20 16:00 01/09/20 16:00 01/09/20 16:00 01/09/20 16:00 01/09/20 00:50 Intake & Output 01/08/20 01/09/20 01/10/20 06:59 06:59 06:59 Intake Total 760 592 Output Total 1300 Balance -540 592 Weight 165.5 kg 165.5 kg Exam: General appearance: PRESENT: no acute distress, well-developed, well-nourished, super morbidly obese with BMI of 73.7, states her infection seems to be getting better Head exam: PRESENT: atraumatic, normocephalic Eye exam: PRESENT: conjunctiva pink. ABSENT: scleral icterus Mouth exam: PRESENT: moist Respiratory exam: PRESENT: clear to auscultation patti. ABSENT: rales, rhonchi, wheezes Cardiovascular exam: PRESENT: RRR. ABSENT: diastolic murmur, rubs, systolic murmur GI/Abdominal exam: PRESENT: normal bowel sounds, soft. ABSENT: distended, guarding, mass, organolmegaly, rebound, tenderness Neurological exam: PRESENT: alert, awake, oriented to person, oriented to place, oriented to time, oriented to situation Psychiatric exam: PRESENT: appropriate affect, normal mood Skin exam: PRESENT: dry, warm; left buttock wound with packing in place and surrounding induration that is notably improved today Results Laboratory Results: 01/09/20 05:45 01/07/20 11:15 01/09/20 05:45 WBC 7.2 RBC 4.55 Hgb 12.3 Hct 38.2 MCV 84 MCH 27.1 MCHC 32.2 RDW 15.8 H Plt Count 378 01/06/20 17:31 Blood Blood Culture (PCR) - Final Staphylococcus Species Impressions: Pelvis CT 01/06/20 15:24 IMPRESSION: 1. Left gluteal subcutaneous abscess containing gas, suspicious for necrotizing infection. No involvement of the perineum. There may be involvement of the left external anal sphincter. No definite involvement of the internal anal sphincter or extension to the intraperitoneal space. Assessment and Plan - Diagnosis (1) Diabetes mellitus type 2 in obese Is this a current diagnosis for this admission?: Yes (2) Left buttock abscess Is this a current diagnosis for this admission?: Yes (3) Left buttock pain Is this a current diagnosis for this admission?: Yes (4) Morbid obesity with BMI of 70 and over, adult Is this a current diagnosis for this admission?: Yes (5) Tobacco use disorder, continuous Is this a current diagnosis for this admission?: Yes - Plan Summary Summary: Per Previous Physician: "Patient was septic on initial presentation, with tachycardia, leukocytosis as well as a source infection of abscess on initial presentation Although cultures currently yielding gram-negative rods I will leave patient on Zosyn as well as Zyvox for now pending further culture results. If no evidence of MRSA Zyvox can be discontinued. (1) Morbid obesity with BMI of 70 and over, adult Is this a current diagnosis for this admission?: Yes Counseled on weight loss (2) Diabetes mellitus type 2 in obese Is this a current diagnosis for this admission?: Yes sliding scale insulin and Accu-Cheks (3) Left buttock abscess Is this a current diagnosis for this admission?: Yes Initially given Zyvox and Zosyn, cultures growing sensitive E. coli and Proteu s; antibiotics changed to ceftriaxone, can be changed to oral cefazolin at discharge to complete total 10-day course Wound culture growing E. coli and Proteus mirabilis Initial blood culture contaminated with MSSA, repeat blood culture pending General surgery consulted I&D done in ED, no further surgery needed per general surgery Needs home health wound care versus nursing facility wound care at discharge Per ID physician: "Recommend adding metronidazole 500 mg po BID to give better anaerobic coverage. When patient is ready for discharge, would send home with oral ciprofloxacin 500 mg BID and metronidazole 500 mg BID to treat for a total of 7-10 days (counting hospital antibiotic days). Patient is morbidly obese, so other options, including Septra will not be practical because of her morbid obesity." Blood culture 1/2 growing staph hominis, blood cultures repeated (4) Tobacco use disorder, continuous Is this a current diagnosis for this admission?: Yes Must stop smoking for wounds to heal (5) Sepsis Resolved - Time Time Spent with patient: 15-24 minutes Medications reviewed and adjusted accordingly: Yes Anticipated Discharge Disposition: [facility] Facility Anticipated Discharge Timeframe: within 24 hours - Inpatient Certification Based on my medical assessment, after consideration of the patient's comorbidities, presenting symptoms, or acuity I expect that the services needed warrant INPATIENT care.: Yes I certify that my determination is in accordance with my understanding of Medicare's requirements for reasonable and necessary INPATIENT services [42 CFR 412.3e].: Yes Medical Necessity: Significant Comorbidiites Make Outpatient Treatment Too Risky, Need Close Monitoring Due to Risk of Patient Decompensation, Need for IV Antibiotics, Risk of Complication if Not Cared For in Hospital, Risk of Diagnosis Which Will Require Inpatient Eval/Care/Monitoring
[2020-01-09] MEDS: METRONIDAZOLE 500 MG TABLET PO SCH (21:48)
[2020-01-09] MEDS: MELATONIN 5 MG TABLET PO PRN (21:48)
[2020-01-10] MEDS: PANTOPRAZOLE SODIUM 40 MG TABLET.DR PO SCH (05:29)
[2020-01-10] MEDS: HEPARIN SOD (PORCINE) 5,000 UNIT/ML 1 ML VIAL SUBCUT SCH ×2 (05:29→15:10)
[2020-01-10] MEDS: INSULIN REG, HUMAN 100 UNIT/ML 3 ML VIAL (PYX) SUBCUT SCH ×3 (07:52→16:33)
[2020-01-10] MEDS: CEFTRIAXONE 2 GM/D5W RTU 2 GM/50 ML RTUPB IV SCH (10:03)
[2020-01-10] MEDS: LISINOPRIL 10 MG TABLET PO SCH (10:03)
[2020-01-10] MEDS: DOCUSATE SODIUM 100 MG CAPSULE PO SCH ×2 (10:03→17:07)
[2020-01-10] MEDS: METFORMIN HCL 500 MG TABLET PO SCH ×3 (10:04→16:02)
[2020-01-10] MEDS: MORPHINE SULFATE 10 MG/ML INJ IV PRN (10:04)
[2020-01-10] MEDS: METRONIDAZOLE 500 MG TABLET PO SCH (10:05)
--- NOTE | 2020-01-10 16:33 | PDOC DISCHARGE SUMMARY ---
Impression - Admit/DC Date/PCP Admission Date/Primary Care Provider: 01/06/20 20:00 Discharge Date: 01/10/20 - Discharge Diagnosis (1) Diabetes mellitus type 2 in obese Is this a current diagnosis for this admission?: Yes (2) Left buttock abscess Is this a current diagnosis for this admission?: Yes (3) Left buttock pain Is this a current diagnosis for this admission?: Yes (4) Morbid obesity with BMI of 70 and over, adult Is this a current diagnosis for this admission?: Yes (5) Tobacco use disorder, continuous Is this a current diagnosis for this admission?: Yes - Assessment Summary: Per Previous Physician: "Patient was septic on initial presentation, with tachycardia, leukocytosis as well as a source infection of abscess on initial presentation Although cultures currently yielding gram-negative rods I will leave patient on Zosyn as well as Zyvox for now pending further culture results. If no evidence of MRSA Zyvox can be discontinued. (1) Morbid obesity with BMI of 70 and over, adult Is this a current diagnosis for this admission?: Yes Counseled on weight loss (2) Diabetes mellitus type 2 in obese Is this a current diagnosis for this admission?: Yes sliding scale insulin and Accu-Cheks Patient refused Metformin as she states it makes her feel poorly, prescribed glipizide counseled extensively on diet and weight loss, recommend vegan diet (3) Left buttock abscessresolving Is this a current diagnosis for this admission?: Yes Initially given Zyvox and Zosyn, cultures growing sensitive E. coli and Proteus; antibiotics changed to ceftriaxone, can be changed to oral cefazolin at discharge to complete total 10-day course Wound culture growing E. coli and Proteus mirabilis Initial blood culture contaminated with MSSA, repeat blood culture pending General surgery consulted I&D done in ED, no further surgery needed per general surgery Needs home health wound care, patient refused discharge to nursing facility for wound care Per ID physician: "Recommend adding metronidazole 500 mg po BID to give better anaerobic coverage. When patient is ready for discharge, would send home with oral ciprofloxacin 500 mg BID and metronidazole 500 mg BID to treat for a total of 7-10 days (counting hospital antibiotic days). Patient is morbidly obese, so other options, including Septra will not be practical because of her morbid obesity." Blood culture 1/2 growing staph hominis, blood cultures repeated are negative (4) Tobacco use disorder, continuous Is this a current diagnosis for this admission?: Yes Must stop smoking for wounds to heal (5) Sepsis Resolved - Additional Information Resuscitation Status: Full Code Discharge Diet: As Tolerated, Other (Comments) Discharge Activity: Activity As Tolerated, Balance Activity w/Rest Referrals: Wound Care [Provider Group] (LEFT MESSAGE FOR PROVIDER TO CONTACT PT) JOSÉ MIGUEL PUENTE MD [ACTIVE STAFF] - BURT TORRES MD [ACTIVE STAFF] - JOSÉ MIGUEL SHANNON MD [ACTIVE STAFF] - Prescriptions: Ciprofloxacin HCl [Cipro 500 mg Tablet] 500 mg PO BID 6 Days #12 tablet Metronidazole [Flagyl 500 mg Tablet] 500 mg PO Q12 6 Days #12 tablet Glipizide [Glucotrol Xl 5 mg Tab.er] 5 mg PO QAM #30 tab.er.24 Nicotine [Nicoderm 21 mg/24 Hr Transderm Patch] 1 each TD DAILYP PRN #30 patch.td24 PRN Reason: Oxycodone HCl/Acetaminophen [Percocet 5-325 mg Tablet] 1 tab PO Q6HP PRN #16 tab PRN Reason: Severe Pain Lisinopril [Prinivil 10 mg Tablet] 10 mg PO DAILY #30 tablet Home Medications: Ciprofloxacin HCl [Cipro 500 mg Tablet] 500 mg PO BID 6 Days #12 tablet 01/10/20 Glipizide [Glucotrol Xl 5 mg Tab.er] 5 mg PO QAM #30 tab.er.24 01/10/20 Lisinopril [Prinivil 10 mg Tablet] 10 mg PO DAILY #30 tablet 01/10/20 Metronidazole [Flagyl 500 mg Tablet] 500 mg PO Q12 6 Days #12 tablet 01/10/20 Nicotine [Nicoderm 21 mg/24 Hr Transderm Patch] 1 each TD DAILYP PRN #30 patch.td24 01/10/20 Oxycodone HCl/Acetaminophen [Percocet 5-325 mg Tablet] 1 tab PO Q6HP PRN #16 tab 01/10/20 History of Present Illiness History of Present Illness: Per Previous Physician: "ALEKSANDAR SCHMIDT is a 64 year old female who presents the emergency room with a 1 week history of left buttock pain. She admits gradually worsening pain accompanied by swelling in her left buttock over the course of the last week becoming severe today. Her buttock pain has also been accompanied by drainage of "pus" over the last 24 hours. Her buttock pain has been associated with developing nausea since the pain has been severe today. She denies other associated or accompanying signs and symptoms. The pain is sharp and stabbing without radiation, worsened by movement and sitting or otherwise putting pressure on the left buttock. She admits numerous prior similar episodes of skin and perianal abscesses which have been treated with oral antibiotics and have not required surgery. She has not identified any additional aggravating or ameliorating factors for her buttock pain. In the emergency room she was found to have a leukocytosis of 17,400 and a glucose of 281 with hemoglobin A1c of 8.3. Patient was not previously known to be diabetic. A CT scan of the area revealed an abscess with a small amount of gas formation consistent with local necrosis. She was seen by Dr. Salazar in consultation ordered by the emergency room provider. He recommended admission with surgical incision and drainage tomorrow. Patient was subsequently admitted to the hospital service for further evaluation and treatment with consultation to Dr. Salazar for further surgical care." Physical Exam Vital Signs: Temp Pulse Resp BP Pulse Ox 98.7 F 72 20 149/78 H 100 01/10/20 16:04 01/10/20 16:04 01/10/20 16:04 01/10/20 16:04 01/10/20 16:04 Intake & Output 01/09/20 01/10/20 01/11/20 06:59 06:59 06:59 Intake Total 760 1062 370 Output Total 1300 1900 1999 Balance -540 838 -1630 Weight 165.5 kg 166 kg Exam: General appearance: PRESENT: no acute distress, well-developed, well-nourished, super morbidly obese with BMI of 73.7, states she would like to go home today Head exam: PRESENT: atraumatic, normocephalic Eye exam: PRESENT: conjunctiva pink. ABSENT: scleral icterus Mouth exam: PRESENT: moist Respiratory exam: PRESENT: clear to auscultation patti. ABSENT: rales, rhonchi, wheezes Cardiovascular exam: PRESENT: RRR. ABSENT: diastolic murmur, rubs, systolic murmur GI/Abdominal exam: PRESENT: normal bowel sounds, soft. ABSENT: distended, guarding, mass, organolmegaly, rebound, tenderness Neurological exam: PRESENT: alert, awake, oriented to person, oriented to place, oriented to time, oriented to situation Psychiatric exam: PRESENT: appropriate affect, normal mood Skin exam: PRESENT: dry, warm; left buttock wound with packing in place and surrounding induration that is notably improved today Results Laboratory Results: WBC 7.2 10^3/uL (4.0-10.5) 01/09/20 05:45 RBC 4.55 10^6/uL (3.72-5.28) 01/09/20 05:45 Hgb 12.3 g/dL (12.0-15.5) 01/09/20 05:45 Hct 38.2 % (36.0-47.0) 01/09/20 05:45 MCV 84 fl (80-97) 01/09/20 05:45 MCH 27.1 pg (27.0-33.4) 01/09/20 05:45 MCHC 32.2 g/dL (32.0-36.0) 01/09/20 05:45 RDW 15.8 % (11.5-14.0) H 01/09/20 05:45 Plt Count 378 10^3/uL (150-450) 01/09/20 05:45 Lymph % (Auto) 5.2 % (13-45) L 01/06/20 14:20 [place] % (Auto) 6.9 % (3-13) 01/06/20 14:20 Eos % (Auto) 1.2 % (0-6) 01/06/20 14:20 Baso % (Auto) 0.4 % (0-2) 01/06/20 14:20 Absolute Neuts (auto) 15.1 10^3/uL (1.7-8.2) H 01/06/20 14:20 Absolute Lymphs (auto) 0.9 10^3/uL (0.5-4.7) 01/06/20 14:20 Absolute Monos (auto) 1.2 10^3/uL (0.1-1.4) 01/06/20 14:20 Absolute Eos (auto) 0.2 10^3/uL (0.0-0.6) 01/06/20 14:20 Absolute Basos (auto) 0.1 10^3/uL (0.0-0.2) 01/06/20 14:20 Seg Neutrophils % 86.3 % (42-78) H 01/06/20 14:20 PT 14.1 SEC (11.4-15.4) 01/07/20 05:18 INR 1.07 01/07/20 05:18 APTT 31.5 SEC (23.5-35.8) 01/07/20 05:18 Sodium 136.7 mmol/L (137-145) L 01/07/20 11:15 Potassium 4.1 mmol/L (3.6-5.0) 01/07/20 11:15 Chloride 101 mmol/L (98-107) 01/07/20 11:15 Carbon Dioxide 25 mmol/L (22-30) 01/07/20 11:15 Anion Gap 11 (5-19) 01/07/20 11:15 BUN 23 mg/dL (7-20) H 01/07/20 11:15 Creatinine 1.65 mg/dL (0.52-1.25) H 01/07/20 11:15 Est GFR ( Amer) 38 (>60) L 01/07/20 11:15 Est GFR (MDRD) Non-Af 31 (>60) L 01/07/20 11:15 Glucose 257 mg/dL (75-110) H 01/07/20 11:15 POC Glucose 162 mg/dL (70-110) H 01/10/20 15:24 Hemoglobin A1c % 8.3 % (4.7-6.0) H 01/06/20 14:20 Calcium 8.8 mg/dL (8.4-10.2) 01/07/20 11:15 Magnesium 2.1 mg/dL (1.6-2.3) 01/07/20 05:18 Total Bilirubin 1.0 mg/dL (0.2-1.3) 01/06/20 14:20 Direct Bilirubin 0.3 mg/dL (0.0-0.4) 01/06/20 14:20 Neonat Total Bilirubin Not Reportable 01/06/20 14:20 Neonat Direct Bilirubin Not Reportable 01/06/20 14:20 Neonat Indirect Bili Not Reportable 01/06/20 14:20 AST 16 U/L (14-36) 01/06/20 14:20 ALT 14 U/L (<35) 01/06/20 14:20 Alkaline Phosphatase 178 U/L (38-126) H 01/06/20 14:20 Total Protein 6.8 g/dL (6.3-8.2) 01/06/20 14:20 Albumin 3.2 g/dL (3.5-5.0) L 01/06/20 14:20 Triglycerides 239 mg/dL (<150) H 01/07/20 05:18 Cholesterol 144.72 mg/dL (0-200) 01/07/20 05:18 LDL Cholesterol Direct 63 mg/dL (<100) 01/07/20 05:18 VLDL Cholesterol 47.8 mg/dL (10-31) H 01/07/20 05:18 HDL Cholesterol 20 mg/dL (>40) L 01/07/20 05:18 TSH 3.60 uIU/mL (0.47-4.68) 01/07/20 05:18 Urine Color YELLOW 01/08/20 17:08 Urine Appearance SLIGHTLY-CLOUDY 01/08/20 17:08 Urine pH 5.0 (5.0-9.0) 01/08/20 17:08 Ur Specific [place] 1.023 01/08/20 17:08 Urine Protein 30 mg/dL (NEGATIVE) H 01/08/20 17:08 Urine Glucose (UA) NEGATIVE mg/dL (NEGATIVE) 01/08/20 17:08 Urine Ketones NEGATIVE mg/dL (NEGATIVE) 01/08/20 17:08 Urine Blood NEGATIVE (NEGATIVE) 01/08/20 17:08 Urine Nitrite NEGATIVE (NEGATIVE) 01/08/20 17:08 Urine Bilirubin NEGATIVE (NEGATIVE) 01/08/20 17:08 Urine Urobilinogen 2.0 mg/dL (<2.0) H 01/08/20 17:08 Ur Leukocyte Esterase SMALL (NEGATIVE) H 01/08/20 17:08 Urine WBC (Auto) 5 /HPF 01/08/20 17:08 Urine RBC (Auto) 2 /HPF 01/08/20 17:08 Urine Bacteria (Auto) TRACE /HPF 01/08/20 17:08 Squamous Epi Cells Auto 1 /HPF 01/08/20 17:08 Urine Mucus (Auto) RARE /LPF 01/08/20 17:08 Urine Ascorbic Acid NEGATIVE (NEGATIVE) 01/08/20 17:08 Impressions: Pelvis CT 01/06/20 15:24 IMPRESSION: 1. Left gluteal subcutaneous abscess containing gas, suspicious for necrotizing infection. No involvement of the perineum. There may be involvement of the left external anal sphincter. No definite involvement of the internal anal sphincter or extension to the intraperitoneal space. Plan Plan of Treatment: Follow-up with PCP Follow-up with outpatient wound clinic Vegan diet Complete antibiotics Time Spent: Greater than 30 Minutes Stroke Is this a Stroke Patient?: No Acute Heart Failure Is this a Heart Failure Patient?: No
[2020-01-11] MEDS: MELATONIN 5 MG TABLET PO PRN
[2020-01-11] MEDS: HEPARIN SOD (PORCINE) 5,000 UNIT/ML 1 ML VIAL SUBCUT SCH ×2 (00:01→07:10)
[2020-01-11 06:45] LABS: ABSOLUTE EOSINOPHILS # (AUTO) 0.1 10^3/uL (0.0-0.6); ABSOLUTE LYMPHOCYTES (AUTO) 1.4 10^3/uL (0.5-4.7); ABSOLUTE MONOCYTES (AUTO) 0.9 10^3/uL (0.1-1.4); ABSOLUTE NEUT (AUTO) 6.2 10^3/uL (1.7-8.2); BASOPHILS % (AUTO) 0.5 % (0-2); EOSINOPHILS % (AUTO) 1.6 % (0-6); HEMATOCRIT 41.7 % (36.0-47.0); HEMOGLOBIN 13.4 g/dL (12.0-15.5); LYMPHOCYTES % (AUTO) 16.5 % (13-45); MEAN CORPUSCULAR HEMOGLOBIN 26.5 pg (27.0-33.4); MEAN CORPUSCULAR HGB CONC 32.2 g/dL (32.0-36.0); MEAN CORPUSCULAR VOLUME 82 fl (80-97); MONOCYTES % (AUTO) 9.8 % (3-13); PLATELET COUNT 374 10^3/uL (150-450); RED BLOOD COUNT 5.06 10^6/uL (3.72-5.28); RED CELL DISTRIBUTION WIDTH 15.6 % (11.5-14.0); SEGMENTED NEUTROPHILS % (AUTO) 71.6 % (42-78); TOTAL CELLS COUNTED % (AUTO) 100 %; WHITE BLOOD COUNT 8.7 10^3/uL (4.0-10.5)
[2020-01-11] MEDS: PANTOPRAZOLE SODIUM 40 MG TABLET.DR PO SCH (07:10)
[2020-01-11 07:14] LABS: ANION GAP 7 (5-19); BLOOD UREA NITROGEN 9 mg/dL (7-20); CALCIUM 9.3 mg/dL (8.4-10.2); CARBON DIOXIDE 32 mmol/L (22-30); CHLORIDE 100 mmol/L (98-107); GLUCOSE 198 mg/dL (75-110); POTASSIUM 3.9 mmol/L (3.6-5.0)
[2020-01-11] MEDS: INSULIN REG, HUMAN 100 UNIT/ML 3 ML VIAL (PYX) SUBCUT SCH ×3 (08:04→11:50)
[2020-01-11] MEDS: METFORMIN HCL 500 MG TABLET PO SCH (08:06)
[2020-01-11] MEDS: DOCUSATE SODIUM 100 MG CAPSULE PO SCH (09:12)
[2020-01-11] MEDS: LISINOPRIL 10 MG TABLET PO SCH (09:12)
[2020-01-11] MEDS: METRONIDAZOLE 500 MG TABLET PO SCH ×2 (09:12)
[2020-01-11] MEDS: CEFTRIAXONE 2 GM/D5W RTU 2 GM/50 ML RTUPB IV SCH (09:13)
[2020-01-11] MEDS ORDERED: CHLORTHALIDONE 25 MG TABLET PO SCH (12:00)
[2020-01-11 12:24] VITALS: BP 136/81
--- NOTE | 2020-01-11 12:49 | PDOC PROGRESS REPORT ---
Subjective Subjective:: Per Previous Physician: "ALEKSANDAR SCHMIDT is a 64 year old female who presents the emergency room with a 1 week history of left buttock pain. She admits gradually worsening pain accompanied by swelling in her left buttock over the course of the last week becoming severe today. Her buttock pain has also been accompanied by drainage of "pus" over the last 24 hours. Her buttock pain has been associated with developing nausea since the pain has been severe today. She denies other associated or accompanying signs and symptoms. The pain is sharp and stabbing without radiation, worsened by movement and sitting or otherwise putting pressure on the left buttock. She admits numerous prior similar episodes of skin and perianal abscesses which have been treated with oral antibiotics and have not required surgery. She has not identified any additional aggravating or ameliorating factors for her buttock pain. In the emergency room she was found to have a leukocytosis of 17,400 and a glucose of 281 with hemoglobin A1c of 8.3. Patient was not previously known to be diabetic. A CT scan of the area revealed an abscess with a small amount of gas formation consistent with local necrosis. She was seen by Dr. Salazar in consultation ordered by the emergency room provider. He recommended admission with surgical incision and drainage tomorrow. Patient was subsequently admitted to the hospital service for further evaluation and treatment with consultation to Dr. Salazar for further surgical care." 01/08/2020 Patient states she is overall feeling better today and believes that her buttock wound is improving. I discussed the case with Dr. Johnson and general surgery today. He has a great deal of concern regarding the patient's ability to heal this wound due to her severe morbid obesity and her overall immobility which puts her at higher risk for poor healing and recurrence. Wound is currently draining purulent fluid and per Dr. Johnson patient can continue having packing and topical treatments without any further need for surgery at this time. Patient is continued on antibiotics. Blood culture was initially contaminated and repeat blood culture is pending. Wound culture grew E. coli and Proteus mirabilis. Plan for patient to be discharged to nursing facility for wound care as she almost certainly is physically unable to reach this wound and care for herself. Even with home health, I will be hesitant to let her go more than a day without appropriate wound care. 01/09/2020 Patient's blood cultures 2/2 are now growing staph hominis which would normally be considered a contaminant but I was told by microbiology lab but this was growing in both bottles. I can see now that it was actually only growing in 1/2 bottles despite what I was told. Patient is already on adequate antibiotic therapy for gram-positive bacteria. I had already consulted infectious disease. Repeat blood cultures today. Patient feels overall quite well and states that her buttock infection is improving steadily. No acute events overnight. 01/10/2020 Patient discharged yesterday but according to nursing late yesterday afternoon, patient did not have home health set up by case management and the patient did not want to drive home at night because she "gets lost and cannot find the way home". She recently moved to this area reportedly. Patient is cleared for discharge today when her home health is set up. She has no new complaints and her wound is significantly improved. Reason For Visit: ABSCESS LEFT BUTTOCK,NEWLY DIAGNOSED DIABETES Physical Exam Vital Signs: Temp Pulse Resp BP Pulse Ox 97.2 F 78 16 149/78 H 97 01/11/20 11:44 01/11/20 11:44 01/11/20 11:44 01/11/20 11:44 01/11/20 11:44 Intake & Output 01/10/20 01/11/20 01/12/20 06:59 06:59 06:59 Intake Total 1062 1180 550 Output Total 1900 4400 Balance -838 -3220 550 Weight 166 kg 167.3 kg Exam: General appearance: PRESENT: no acute distress, well-developed, well-nourished, super morbidly obese with BMI of 73.7, states she would like to go home Head exam: PRESENT: atraumatic, normocephalic Eye exam: PRESENT: conjunctiva pink. ABSENT: scleral icterus Mouth exam: PRESENT: moist Respiratory exam: PRESENT: clear to auscultation patti. ABSENT: rales, rhonchi, wheezes Cardiovascular exam: PRESENT: RRR. ABSENT: diastolic murmur, rubs, systolic murmur GI/Abdominal exam: PRESENT: normal bowel sounds, soft. ABSENT: distended, guarding, mass, organolmegaly, rebound, tenderness Neurological exam: PRESENT: alert, awake, oriented to person, oriented to place, oriented to time, oriented to situation Psychiatric exam: PRESENT: appropriate affect, normal mood Skin exam: PRESENT: dry, warm; left buttock wound with packing in place and surrounding induration that is notably improved today Results Laboratory Results: 01/11/20 06:34 01/11/20 06:34 01/11/20 01/11/20 06:34 06:34 WBC 8.7 RBC 5.06 Hgb 13.4 Hct 41.7 MCV 82 MCH 26.5 L MCHC 32.2 RDW 15.6 H Plt Count 374 Seg Neutrophils % 71.6 Sodium 139.0 Potassium 3.9 Chloride 100 Carbon Dioxide 32 H Anion Gap 7 BUN 9 Creatinine 1.05 Est GFR ( Amer) > 60 Glucose 198 H Calcium 9.3 01/06/20 17:31 Blood Blood Culture (PCR) - Final Staphylococcus Species 01/06/20 18:50 Buttocks - Left Gram Stain - Final 01/06/20 18:50 Buttocks - Left Wound Culture - Final Escherichia Coli Proteus Mirabilis Prevotella Species Impressions: Pelvis CT 01/06/20 15:24 IMPRESSION: 1. Left gluteal subcutaneous abscess containing gas, suspicious for necrotizing infection. No involvement of the perineum. There may be involvement of the left external anal sphincter. No definite involvement of the internal anal sphincter or extension to the intraperitoneal space. Assessment and Plan - Diagnosis (1) Diabetes mellitus type 2 in obese Is this a current diagnosis for this admission?: Yes (2) Left buttock abscess Is this a current diagnosis for this admission?: Yes (3) Left buttock pain Is this a current diagnosis for this admission?: Yes (4) Morbid obesity with BMI of 70 and over, adult Is this a current diagnosis for this admission?: Yes (5) Tobacco use disorder, continuous Is this a current diagnosis for this admission?: Yes - Plan Summary Summary: Per Previous Physician: "Patient was septic on initial presentation, with tachycardia, leukocytosis as well as a source infection of abscess on initial presentation Although cultures currently yielding gram-negative rods I will leave patient on Zosyn as well as Zyvox for now pending further culture results. If no evidence of MRSA Zyvox can be discontinued. (1) Morbid obesity with BMI of 70 and over, adult Is this a current diagnosis for this admission?: Yes Counseled on weight loss (2) Diabetes mellitus type 2 in obese Is this a current diagnosis for this admission?: Yes sliding scale insulin and Accu-Cheks Patient refused Metformin as she states it makes her feel poorly, prescribed glipizide counseled extensively on diet and weight loss, recommend vegan diet (3) Left buttock abscessresolving Is this a current diagnosis for this admission?: Yes Initially given Zyvox and Zosyn, cultures growing sensitive E. coli and Prot eus; antibiotics changed to ceftriaxone, can be changed to oral cefazolin at discharge to complete total 10-day course Wound culture growing E. coli and Proteus mirabilis Initial blood culture contaminated with MSSA, repeat blood culture pending General surgery consulted I&D done in ED, no further surgery needed per general surgery Needs home health wound care, patient refused discharge to nursing facility for wound care Per ID physician: "Recommend adding metronidazole 500 mg po BID to give better anaerobic coverage. When patient is ready for discharge, would send home with oral ciprofloxacin 500 mg BID and metronidazole 500 mg BID to treat for a total of 7-10 days (counting hospital antibiotic days). Patient is morbidly obese, so other options, including Septra will not be practical because of her morbid obesity." Blood culture 1/2 growing staph hominis, blood cultures repeated are negative (4) Tobacco use disorder, continuous Is this a current diagnosis for this admission?: Yes Must stop smoking for wounds to heal (5) Sepsis Resolved - Time Time Spent with patient: 15-24 minutes Anticipated Discharge Disposition: Home with Home Health Anticipated Discharge Timeframe: within 24 hours - Inpatient Certification Based on my medical assessment, after consideration of the patient's jason rbidities, presenting symptoms, or acuity I expect that the services needed warrant INPATIENT care.: Yes I certify that my determination is in accordance with my understanding of Medicare's requirements for reasonable and necessary INPATIENT services [42 CFR 412.3e].: Yes
== END 2020-01-11 12:22 | disposition home health service (06) | DRG 853 ==
LOC: ER 12:51 → EH 20:00 → 4S 22:32
PROVIDERS: ADMIT Emergency Medicine; ATTEND Internal Medicine
PROC: 0J990ZZ Drainage of Buttock Subcutaneous Tissue and Fascia, Open Approach (ICD-10-PCS; principal; 2020-01-06)
DX: A41.9 Sepsis, unspecified organism (principal); A48.0 Gas gangrene; E11.52 Type 2 diabetes mellitus with diabetic peripheral angiopathy with gangrene; Z68.45 Body mass index [BMI] 70 or greater, adult; L02.31 Cutaneous abscess of buttock; E66.01 Morbid (severe) obesity due to excess calories; B96.20 Unspecified Escherichia coli [E. coli] as the cause of diseases classified elsewhere; B96.4 Proteus (mirabilis) (morganii) as the cause of diseases classified elsewhere; R11.0 Nausea; F17.210 Nicotine dependence, cigarettes, uncomplicated; Z79.84 Long term (current) use of oral hypoglycemic drugs; Z79.899 Other long term (current) drug therapy; Z83.3 Family history of diabetes mellitus; Z71.6 Tobacco abuse counseling
CPT/HCPCS: 36415; 72193; 80048; 80053; 80061; 81001; 82962; 83036; 83735; 84443; 85025; 85027; 85610; 85730; 87040; 87070; 87075; 87077; 87150; 87186; 87205; 96361; 96365; 96375; 99285; J0696; J1644; J1815; J2020; J2270; J2405; J2543; J3490; J7030